=== PATIENT | male | born 1945 | race Caucasian/White ===

== ENCOUNTER 2017-11-30 08:13 | Emergency (ER) | payer MEDICARE, OTHER, SELFPAY ==
[2017-11-30 08:15] VITALS: BP 140/85; PULSE 93; RESP 14; TEMP 35.8; BMI 38.8
--- NOTE | 2017-11-30 08:32 | CT_ITS ---
STUDY: CT RIGHT ELBOW WITH CONTRAST REASON FOR EXAM: Right elbow swelling for one week, gout. TECHNIQUE: Transaxial CT imaging of the elbow was performed post contrast administration. The examination was performed with intravenous administration of 100 ml of Isovue 300 contrast material. Sagittal and coronal images were reconstructed. Individualized dose optimization techniques were used for this CT. COMPARISON: None. FINDINGS: There is an olecranon enthesophyte (axial images 53-56). Otherwise, unremarkable visualized humerus, radius and ulna without osseous erosions. Normal radiocapitellar and ulnotrochlear articulations. There is soft tissue swelling at the posterior and ulnar aspects of the elbow/forearm with an ill-defined fluid collection in the region of the olecranon bursa (axial images 42-54) suggestive of olecranon bursitis. The fluid collection measures approximately 1.4 x 2.5 cm (AP x transverse). Although septic bursitis cannot be excluded, there is no contrast enhancing wall to suggest abscess. CT/Extremity Upper WITH Contrast IMPRESSION: Ill-defined fluid collection in the region of the olecranon bursa suggestive of bursitis. Soft tissue swelling. Olecranon enthesophyte. No demonstrated osseous erosions or bone destruction. Electronically Signed: Wallace Landa MD at 10:11 EDT Tel , Service support ,
[2017-11-30] MEDS: Morphine 4 MG/ML Syringe IV (08:56)
[2017-11-30] MEDS: Ondansetron 4 MG/2 ML Vial IV (08:56)
[2017-11-30 08:58] LABS: Absolute Lymphocyte Count 1.56 X10^3/ul (0.83-4.51); Absolute Neutrophil Count 6.3 X10^3/uL (2.0-7.7); Basophil# 0.01 X10^3/uL; Basophil% 0.1 % (0-1); Eosinophils% 1.1 % (0-5); Hematocrit 43.7 % (40-54); Hemoglobin 14.4 g/dl (13.0-16.5); Lymphocyte # 1.56 X10^3/ul (4.0); Lymphocyte % 17.2 % (19-41); Mean Corpuscular Hgb 29.6 pg (27.0-32.0); Mean Corpuscular Volume 89.7 fL (80-94); Mean Platelet Vol. 9.2 fl (6.2-12.0); Monocyte# 1.08 X10^3/uL; Monocyte% 11.9 % (0-10); Neutrophil # 6.33 X10^3/uL (2.7-7.7); Neutrophil % 69.7 % (47-70); Platelet Count 263 K/mm3 (150-450); RBC Distribution Width CV 13.6 % (11.6-14.6); RBC Distribution Width SD 44.6 fl (35.1-43.9); Red Blood Count 4.87 M/mm3 (4.6-6.2); White Blood Count 9.1 K/mm3 (4.4-11.0)
--- NOTE | 2017-11-30 08:58 | ED.VISSUMM ---
- ER Visit Summary Date of Service: 11/30/17 Chief Complaint: Right elbow pain History of Present Illness: The patient is a 71 M with right elbow pain. This started about a week ago. The pain was near his medial epicondyle. He denies any trauma or skin breaks. The pain spread to his right elbow area, and he had some associated redness and swelling. He has pain with movement and touch. Nothing seems to make it better. He thought this might be gout. He had gout before in his right wrist, and it initially felt like gout. He has never had gout in his elbow. He denies any fever or systemic symptoms. Denies any change in his medications. Physical Examination: Afebrile and vital signs unremarkable. Nontoxic and in no acute distress. Alert and oriented. Inspection of his right arm shows erythema over his olecranon process and then slightly distally in an area about the size of his palm. There is some induration on palpation, but no fluctuance. There is some diffuse distal edema as well. Otherwise his skin appears unremarkable. No skin breaks. He is neurovascularly intact distally. There are no deformities. I can range his elbow with only minimal discomfort. Test Results: Imaging and labs are pending. Emergency Department Course and Treatment: This is not a classic presentation for gout. I can move his elbow without too much difficulty, and so I think a septic or crystal arthropathy is less likely. There is no focal swelling which would be more consistent with a bursitis. There is no definite abscess. This may simply be cellulitis. There is nothing to suggest DVT or fracture. I spoke with the patient about trying antibiotics, pain meds, and steroids. He could then follow-up with his doctor. He says he has trouble following up and would like to be more aggressive. We will check some blood work and imaging. CT showed soft tissue swelling and an ill-defined fluid collection, possibly bursitis. Will treat with Bactrim and Keflex. Referred to Dr. Oliverio Dill for follow-up. Patient was advised to return for spreading infection, worsening pain, or any other concerning symptoms. Treatment Plan: As above Disposition: Discharged Impression: 1. Right elbow septic bursitis This note was generated with [employer] software. It may contain incorrect words, spelling, and punctuation that were not noted in review of the chart prior to signing ED Disposition - Plan for ED Patient: Chief Complaint: Upper Extremity Injury [facility] [Primary Care Provider] -
[2017-11-30 09:00] LABS: Anion Gap 5 (5-15); BUN 13 mg/dL (7-18); BUN/Creat Ratio 12.3 RATIO (10-20); Chloride 104 mmol/L (98-107); Creatinine, Serum 1.06 mg/dL (0.70-1.30); EST Glomerular Filtration Rate 73 mL/min (>60); Est Glom Filt Rate - Afr Amer 88 mL/min (>60); Estimated Creatinine Clearance 68.08 ml/min; Glucose 107 mg/dL (74-106); Potassium 4.4 mmol/L (3.5-5.1); Sodium Level 139 mmol/L (136-145)
[2017-11-30 09:03] LABS: POSITIVE COUNT NO; POSITIVE DIFFERENTIAL NO; POSITIVE MORPHOLOGY NO
--- NOTE | 2017-11-30 10:51 | ED.DEP ---
ED Disposition - Plan for ED Patient: Chief Complaint: Upper Extremity Injury Instructions: ED Bursitis Elbow Olecranon Prescriptions: Oxycodone HCl/Acetaminophen [Percocet 5/325] 1 tab PO Q6H PRN PRN 3 Days #12 tab PRN Reason: Pain Cephalexin [Keflex] 500 mg PO Q6 #28 cap Smz/Tmp Ds [Bactrim Ds] 1 tab PO BID #14 tab Referrals: Oliverio Dill MD [STAFF PHYSICIAN] -
[2017-11-30 11:11] VITALS: BP 132/70; PULSE 80; PULSE 85; RESP 14; O2SAT 98; O2SAT 99
== END 2017-11-30 11:25 | disposition home or self-care (01) ==
PROVIDERS: Emergency Provider Emergency Medicine
DX: M70.21 Olecranon bursitis, right elbow (principal); Y93.9 Activity, unspecified; M19.90 Unspecified osteoarthritis, unspecified site; Z79.899 Other long term (current) drug therapy
CPT/HCPCS: 73201; 80048; 85025; 96374; 96375; 99283; J7040; Q9967; A4216; J2405

== ENCOUNTER 2017-12-04 10:22 | Inpatient (IN) | payer MEDICARE, OTHER, SELFPAY ==
[2017-12-04] VITALS (7 sets, daily range): BP systolic 129–164; BP diastolic 68–86; PULSE 70–89; RESP 18–20; TEMP 36.6–37.1; O2SAT 97–98; BMI 37.6; BMI 37.7
--- NOTE | 2017-12-04 10:38 | RAD_ITS ---
STUDY: X-RAY - RIGHT ELBOW REASON FOR EXAM: Male, 71 years old. Cellulitis redness pain TECHNIQUE: 3 view(s) of the elbow. COMPARISON: November 30, 2017 CT scan elbow FINDINGS: Normal visualized humerus, radius and ulna. There is degenerative arthrosis of the radiocapitellar and ulnotrochlear articulations. The there is diffuse soft tissue edema about the elbow. There is calcification adjacent to the lateral aspect of the elbow which may represent ligamentous calcification. There is a large area of focal edema in the posterior aspect of the elbow which given its location may represent possible bursitis. RAD/Elbow min 3 Views IMPRESSION: Soft tissue swelling and edema consider bursitis allowing for differences in technique may be worse than prior study. Degenerative changes left elbow. Electronically Signed: Adele Chandra MD at 11:46 EDT Tel , Service support ,
[2017-12-04 10:54] LABS: Absolute Lymphocyte Count 1.05 X10^3/ul (0.83-4.51); Absolute Neutrophil Count 6.5 X10^3/uL (2.0-7.7); Basophil# 0.02 X10^3/uL; Basophil% 0.2 % (0-1); Eosinophil# 0.09 X10^3/uL; Eosinophils% 1.1 % (0-5); Hematocrit 38.6 % (40-54); Hemoglobin 12.8 g/dl (13.0-16.5); Lymphocyte # 1.05 X10^3/ul (4.0); Lymphocyte % 12.3 % (19-41); Mean Corp Hgb Conc 33.2 g/gl (32-36); Mean Corpuscular Hgb 29.6 pg (27.0-32.0); Mean Corpuscular Volume 89.4 fL (80-94); Mean Platelet Vol. 8.6 fl (6.2-12.0); Monocyte# 0.91 X10^3/uL; Monocyte% 10.6 % (0-10); Neutrophil # 6.48 X10^3/uL (2.7-7.7); Neutrophil % 75.6 % (47-70); POSITIVE COUNT NO; POSITIVE DIFFERENTIAL NO; POSITIVE MORPHOLOGY NO; Platelet Count 286 K/mm3 (150-450); RBC Distribution Width CV 13.9 % (11.6-14.6); RBC Distribution Width SD 45.1 fl (35.1-43.9); Red Blood Count 4.32 M/mm3 (4.6-6.2); White Blood Count 8.6 K/mm3 (4.4-11.0)
[2017-12-04] MEDS: 0.9% Normal Saline 1,000 ML 999 ML IV (11:02)
[2017-12-04] MEDS: Morphine 4 MG/ML Syringe IV (11:02)
[2017-12-04] MEDS: Ondansetron 4 MG/2 ML Vial IV (11:02)
[2017-12-04 11:05] LABS: Anion Gap 9 (5-15); BUN 13 mg/dL (7-18); BUN/Creat Ratio 9.4 RATIO (10-20); Calcium,Total 8.7 mg/dL (8.5-10.1); Chloride 101 mmol/L (98-107); Creatinine, Serum 1.38 mg/dL (0.70-1.30); EST Glomerular Filtration Rate 54 mL/min (>60); Est Glom Filt Rate - Afr Amer 65 mL/min (>60); Estimated Creatinine Clearance 52.29 ml/min; Glucose 116 mg/dL (74-106); Potassium 3.7 mmol/L (3.5-5.1); Sodium Level 136 mmol/L (136-145)
--- NOTE | 2017-12-04 12:57 | ED.VISSUMM ---
- ER Visit Summary Date of Service: 12/04/17 Chief Complaint: Right elbow pain History of Present Illness: The patient is a 71 M who presents with right elbow pain. It is been present for 2 weeks. He was recently seen in the emergency department. At that time he had laboratory studies and a CT of the upper extremity which showed an ill-defined fluid collection suggestive of olecranon bursitis. He was discharged on oral antibiotics pain medications and steroids. He states it is continue to worsen since that time over the last couple of days. He does not have systemic symptoms such as fevers nausea vomiting chest pain shortness of breath. No history of prior similar symptoms. Physical Examination: Afebrile hypertensive vitals otherwise unremarkable Moist mucous membranes Heart regular rate and rhythm Lungs clear Abdomen soft Patient has a large area of erythema soft tissue swelling cellulitis which is hot to the touch over the posterior right arm there is fluctuance beginning at the olecranon measuring about 10 x 5 cm consistent with septic olecranon bursitis he has good short arc range of motion of the elbow without pain he is neurovascularly intact distally with palpable pulses and brisk capillary refill normal sensation light touch Test Results: CBC BMP notable for hemoglobin 12.8, creatinine 1.38. Elbow x-ray shows soft tissue swelling and edema suggestive of bursitis which when allowing for technique does appear worse. Emergency Department Course and Treatment: I do believe the patient has septic olecranon bursitis which is failing outpatient treatment it appears to have a significant area of cellulitis and I do believe intervention. He was treated with IV Zosyn. He was given IV morphine and Zofran for symptom control. He was discussed with Dr. Borrero who will see the patient. Patient admitted under the hospitalist service. Treatment Plan: [] Disposition: Admit Impression: Septic olecranon bursitis This note was generated with [employer] dictation software. It may contain incorrect words, spelling, and punctuation that were not noted in review of the chart prior to signing ED Disposition - Plan for ED Patient: Chief Complaint: Cellulitis [facility]errals: [facility] [Primary Care Provider] -
--- NOTE | 2017-12-04 13:12 | NURSING ---
DR JOSE IN ER
--- NOTE | 2017-12-04 13:22 | PCM.HP.STD ---
Problem List (1) Cellulitis of right elbow Status: Acute (2) Arthritis Status: Chronic (3) Hyperlipidemia Status: Chronic History of Present Illness Date of Admission: 12/04/17 Chief Complaint: Worsening right elbow redness, swelling and pain. The patient is a 71 year old M with past medical history as mentioned above presented to the emergency room because of worsening redness, swelling and pain of the right elbow. The patient's illness started around 9 days ago with right elbow pain, mild pain, described as dull ache, 3-4 out of 10 in severity, no associated symptoms and without aggravating or relieving factors. 6 days later from the onset of the right elbow pain, patient came to the emergency department for evaluation. He was found to have right elbow bursitis and possible cellulitis and he was discharged home on Keflex and Bactrim. Today, patient presented back to the ED because of worsening right elbow swelling, redness and discomfort. He complained of right elbow pain, dull aching pain with tightness, mild, 3-4 out of 10 in severity, associated with increasing redness and swelling of the right elbow extending down to the right forearm, minimally aggravated by movement of the right elbow and without relieving factors. He denied fever or chills. He denied trauma or skin wounds. In the emergency department, he was afebrile, heart rate stable, blood pressure slightly elevated, pulse ox was 98% on room air. Routine blood work was remarkable for creatinine of 1.38, otherwise normal. X-ray of the right elbow revealed soft tissue swelling and edema. On November 30, 2017, patient had CT scan of the right elbow that revealed ill-defined fluid collection in the region of the olecranon bursa and soft tissue swelling. He is being admitted for acute probably bacterial right elbow cellulitis/bursitis and probable abscess. Past Medical History Past Medical History (Chronic Problems): Chronic Problems Arthritis (Chronic) Hyperlipidemia (Chronic) Allergies bee venom protein (honey bee) Allergy (Verified 12/04/17 10:25) Anaphylaxis Home Medications: Ambulatory Orders Medication Instructions Recorded Epinephrine [Epi Pen] 0.3 mg IM X1 #2 syringe 11/21/16 Simvastatin [Zocor] 5 mg PO DAILY 11/21/16 traMADol [Ultram (G)] 50 mg PO Q6H PRN PRN 11/21/16 Cephalexin [Keflex] 500 mg PO Q6 #28 cap 11/30/17 Naproxen Sodium [Aleve] 220 mg PO BID PRN 11/30/17 Oxycodone HCl/Acetaminophen 1 tab PO Q6H PRN PRN 3 Days #12 tab 11/30/17 [Percocet 5/325] Smz/Tmp Ds [Bactrim Ds] 1 tab PO BID #14 tab 11/30/17 Surgical History: no surgical history Psychiatric History: No pertinent psych hx Lives: With Family Smoking Status: Never smoker Alcohol: Occasional Drugs: None - *Family History Maternal History Items: No pertinent history Paternal History Items: No pertinent history Review of Systems Constitutional: Denies: Anorexia, Chills, Fever, Weakness Eyes: Denies: Blurred vision, Double vision, Drainage, Redness HEENT: Denies: Difficulty Hearing, Ear Pain, Eye Pain, Nasal Congestion, Sore Throat Cardiovascular: Denies: Chest Pain, Chest Pressure, Edema, Light Headedness, Syncope Respiratory: Denies: Cough, Pleuritic Pain, Shortness of Breath, Sputum production, Wheezing Gastrointestinal: Denies: Abdominal Pain, Constipation, Diarrhea, Nausea, Vomiting Genitourinary: Denies: Dysuria, Frequency, Hematuria Musculoskeletal: Reports: Joint Pain. Denies: Arm Pain, Back Pain, Shoulder Pain Skin: Denies: Dryness, Rash Neurological: Denies: Balance problems, Double vision, Change in Speech, Slurred speech, Confusion, Headaches, Incoordination, Numbness Psychiatric: Denies: Anxiety, Depression Endocrine: Denies: Change in Body Habitus, Polydipsia VTE Information - Inpt Only VTE Present on Admission: No VTE Mechan Device Prophylaxis: None VTE Pharm Prophylaxis ordered?: Yes Patient Problems: Active and Suspected Problems Cellulitis of right elbow (Acute) - Physical Exam General: Alert, Oriented x3, Cooperative, No apparent distress HEENT: Atraumatic, PERRLA, EOMI, Normocephalic Oral: Moist Mucosa, No Gingival or Mucosal Lesions/ Ulcerations Neck: Supple, No JVD, Negative Carotid Bruits, Trachea Midline, Thyroid Normal Size and Texture Lungs: Clear to auscultation, Normal air movement, No rhonchi, No wheeze, No rales Cardiovascular: Regular rate, Regular Rhythm, Normal S1, Normal S2, No murmurs Abdomen: Bowel Sounds Present, Soft, Non Tender, Non-Distended, No Hepato-splenomegaly Extremities: No clubbing, No cyanosis, No edema Skin: No rashes, No breakdown, - - Right elbow: Swelling and erythema of the right elbow extending down to the upper one third of the right forearm dorsally. No drainage or pus. Lymphatic: No Cervical, Supraclavicular, or Inguinal Adenopathy Neurological: Cranial nerves II-XII grossly intact, Motor Exam 5/5 strength throughout Psych/Mental Status: Normal Affect, Appropriate, Alert and oriented to time, place, person, mood and affect Vital Signs Temp Pulse Resp BP Pulse Ox 98.8 F 89 18 164/83 H 98 12/04/17 10:23 12/04/17 10:23 12/04/17 10:23 12/04/17 10:23 12/04/17 10:23 Oxygen Delivery Method Room Air Weight: 270 lb Body Mass Index (BMI) 37.6 Laboratory Tests Past 24 Hrs 12/04/17 12/04/17 10:40 10:40 WBC 8.6 RBC 4.32 L Hgb 12.8 L Hct 38.6 L MCV 89.4 MCH 29.6 MCHC 33.2 RDW 13.9 RDW Differential 45.1 H Plt Count 286 MPV 8.6 Immature Gran % (Auto) 0.200 Neut % (Auto) 75.6 H Lymph % (Auto) 12.3 L [place] % (Auto) 10.6 H Eos % (Auto) 1.1 Baso % (Auto) 0.2 Absolute Neuts (auto) 6.5 Absolute Lymphs (auto) 1.05 Total Counted Not Reportable Sodium 136 Potassium 3.7 Chloride 101 Carbon Dioxide 26.0 Anion Gap 9 BUN 13 Creatinine 1.38 H Estim Creat Clear Calc 52.29 Est GFR (MDRD) Af Amer 65 Est GFR (MDRD) Non-Af 54 L BUN/Creatinine Ratio 9.4 L Glucose 116 H Calcium 8.7 Clinical Impression(s) from Imaging Studies Elbow X-Ray 12/04/17 10:38 IMPRESSION: Soft tissue swelling and edema consider bursitis allowing for differences in technique may be worse than prior study. Degenerative changes left elbow. Electronically Signed: Adele Chandra MD at 11:46 EDT Tel , Service support , Assessment/Plan All Active Problems Cellulitis of right elbow (Acute) This is a 71 years old male patient presented to the emergency room because of worsening right elbow swelling, erythema and pain in context of recent visit to ED, diagnosed with right elbow bursitis and discharged on Keflex and Bactrim and he presented back today because of worsening symptoms and he is being admitted for acute right elbow cellulitis/bursitis and probable abscess. #1 acute right elbow cellulitis/bursitis/probable abscess: With failure of outpatient therapy. Patient was on Keflex and Bactrim for 4 days without improvement. His vital signs are stable, no evidence of sepsis or severe sepsis. X-ray of the right elbow from today reviewed, revealed soft tissue swelling and edema. CT scan of the right elbow done on November 30, 2017 and revealed ill-defined fluid collection suggestive of bursitis. Plan: Admit to MedSurg, telemetry, MRSA screen, wound culture, start IV cefazolin, IV Toradol, OxyIR as needed, IV fluids, IV antiemetics, orthopedic surgery consult. #2 dehydration: Likely secondary to dehydration. Admission creatinine is 1.38, it was 1.06 4 days ago. Plan for IV fluids, input output chart, repeat BMP tomorrow morning. #3 hyperlipidemia: Continue statins. #4 arthritis: Tylenol as needed, OxyIR as needed, IV Toradol. #5 DVT prophylaxis: Subcu Lovenox. This note was generated with [employer] dictation software. It may contain incorrect words, spelling, and punctuation that were not noted in checking the note before signing. Code Visit Inpatient E&M: 74543 Init Hosp L3
--- NOTE | 2017-12-04 13:24 | NURSING ---
MED SURG ACUTE RT ELBOW CELLULITIS, BURSITIS, WITH FAILURE OF OP MARA WOODSON
[2017-12-04 14:40] LABS: Erythrocyte Sedimentation Rate 59 mm/hr (0-20)
[2017-12-04] MEDS: 0.9% Normal Saline 1,000 ML 100 ML IV (15:11)
[2017-12-04] MEDS: oxyCODONE 5 MG Tablet PO (15:11)
[2017-12-04] MEDS: Ketorolac 15 MG/ML Vial IV ×2 (15:48→21:12)
[2017-12-04] MEDS: Cefazolin 1 GM/50 ML BAG IV ×2 (15:48→21:11)
[2017-12-04 18:17] LABS: M R Staph aureus DNA By PCR Negative (Negative); Probe Check PASS; Specimen Processing Control PASS; Staph aureus DNA By PCR NEGATIVE (Negative)
[2017-12-04] MEDS: Atorvastatin Calcium 10 MG Tablet 5 MG PO (21:11)
[2017-12-05] VITALS (11 sets, daily range): BP systolic 109–146; BP diastolic 59–86; PULSE 58–65; RESP 16–18; TEMP 36.7–37.1; O2SAT 94–100
[2017-12-05] MEDS: oxyCODONE 5 MG Tablet PO ×4 (01:05→18:35)
[2017-12-05] MEDS: 0.9% Normal Saline 1,000 ML 100 ML IV ×2 (01:05→11:25)
[2017-12-05] MEDS: Cefazolin 1 GM/50 ML BAG IV (05:20)
[2017-12-05] MEDS: Ketorolac 15 MG/ML Vial IV ×3 (05:21→21:15)
[2017-12-05 07:31] LABS: Absolute Lymphocyte Count 1.25 X10^3/ul (0.83-4.51); Absolute Neutrophil Count 5.8 X10^3/uL (2.0-7.7); Basophil# 0.01 X10^3/uL; Basophil% 0.1 % (0-1); Eosinophil# 0.19 X10^3/uL; Eosinophils% 2.3 % (0-5); Hematocrit 33.5 % (40-54); Hemoglobin 11.1 g/dl (13.0-16.5); Lymphocyte # 1.25 X10^3/ul (4.0); Lymphocyte % 15.1 % (19-41); Mean Corp Hgb Conc 33.1 g/gl (32-36); Mean Corpuscular Hgb 29.8 pg (27.0-32.0); Mean Corpuscular Volume 90.1 fL (80-94); Mean Platelet Vol. 8.9 fl (6.2-12.0); Monocyte% 12.1 % (0-10); Neutrophil # 5.81 X10^3/uL (2.7-7.7); Neutrophil % 70.2 % (47-70); Platelet Count 276 K/mm3 (150-450); RBC Distribution Width CV 14.1 % (11.6-14.6); RBC Distribution Width SD 45.2 fl (35.1-43.9); Red Blood Count 3.72 M/mm3 (4.6-6.2); White Blood Count 8.3 K/mm3 (4.4-11.0)
[2017-12-05 07:34] LABS: POSITIVE COUNT NO; POSITIVE DIFFERENTIAL NO; POSITIVE MORPHOLOGY NO
[2017-12-05 07:47] LABS: Anion Gap 6 (5-15); BUN 12 mg/dL (7-18); BUN/Creat Ratio 11.3 RATIO (10-20); Calcium,Total 7.9 mg/dL (8.5-10.1); Chloride 107 mmol/L (98-107); Creatinine, Serum 1.06 mg/dL (0.70-1.30); EST Glomerular Filtration Rate 73 mL/min (>60); Est Glom Filt Rate - Afr Amer 88 mL/min (>60); Estimated Creatinine Clearance 68.08 ml/min; Glucose 104 mg/dL (74-106); Potassium 4.1 mmol/L (3.5-5.1); Sodium Level 138 mmol/L (136-145)
--- NOTE | 2017-12-05 07:48 | PCM.CONS.GEN ---
Reason for Consult Date of Consultation: 12/05/17 Reason for Consultation: Right elbow infection History of Present Illness: The patient is a 71 year old M that presents to the ER last night with persistent swelling and infection overlying the dorsal aspect of his right elbow. He was given antibiotics in the ER and sent home which did not seem to make any improvements. Because of feeling outpatient oral antibiotics he was admitted last night for IV antibiotics. Orthopedics was subsequently consulted. Patient does not feel that this has improved at all over the past 9 days Past Medical History Past Medical History (Chronic Problems): Chronic Problems Arthritis (Chronic) Hyperlipidemia (Chronic) Allergies bee venom protein (honey bee) Allergy (Verified 12/04/17 10:25) Anaphylaxis Home Medications: Ambulatory Orders Medication Instructions Recorded Epinephrine [Epi Pen] 0.3 mg IM X1 #2 syringe 11/21/16 Simvastatin [Zocor] 5 mg PO QHS 11/21/16 traMADol [Ultram (G)] 50 mg PO Q6H PRN PRN 11/21/16 Cephalexin [Keflex] 500 mg PO Q6 #28 cap 11/30/17 Naproxen Sodium [Aleve] 220 mg PO BID PRN 11/30/17 Smz/Tmp Ds [Bactrim Ds] 1 tab PO BID #14 tab 11/30/17 Surgical History: no surgical history Psychiatric History: No pertinent psych hx Lives: With Family Smoking Status: Former smoker Alcohol: Occasional Drugs: None - *Family History Maternal History Items: No pertinent history Paternal History Items: No pertinent history Review of Systems Constitutional: Denies: Chills, Fever, Weight Change HEENT: Denies: Head Aches, Sinus Congestion, Sinus Drainage Cardiovascular: Denies: Chest Pain, Palpitations Respiratory: Denies: Cough, Shortness of breath at rest, Sputum production Gastrointestinal: Denies: Abdominal Pain, Nausea, Vomiting Genitourinary: Denies: Dysuria Musculoskeletal: Reports: - - Per history of present illness Skin: Reports: - - Redness overlying the dorsal aspect of elbow Neurological: Denies: Numbness, Tingling, Focal weakness Patient Problems: Active and Suspected Problems Cellulitis of right elbow (Acute) - Physical Exam General: Alert, Oriented x3, Cooperative HEENT: Atraumatic, PERRLA, EOMI, Normocephalic Neck: Supple Lungs: Normal air movement Cardiovascular: Regular rate Abdomen: Soft Musculoskeletal: - - Significant swelling is noted over the dorsum aspect of his right elbow. Swelling does appear to propagate in the dorsal aspect of the forearm proximally. There are couple areas that are concerning for infection overlying the olecranon. The olecranon appears to be the nidus for septic bursitis. The concerning area is approximately 20 cm in length 10 cm in width. He is able to move his elbow. He is neurologically intact. There is no pain in the shoulder wrist or hand Vital Signs Temp Pulse Resp BP Pulse Ox 98.7 F 61 18 110/63 96 12/05/17 03:51 12/05/17 06:00 12/05/17 03:51 12/05/17 03:51 12/05/17 03:51 Oxygen Delivery Method Room Air Weight: 270 lb Body Mass Index (BMI) 37.6 Intake and Output for Last 24 Hours 12/03/17 12/04/17 12/05/17 23:59 23:59 23:59 Intake Total 757 / 757 1499 / 1499 Balance 757 / 757 1499 / 1499 Laboratory Tests Past 24 Hrs 12/04/17 12/05/17 12/05/17 15:20 07:20 07:20 WBC 8.3 RBC 3.72 L Hgb 11.1 L Hct 33.5 L MCV 90.1 MCH 29.8 MCHC 33.1 RDW 14.1 RDW Differential 45.2 H Plt Count 276 MPV 8.9 Immature Gran % (Auto) 0.200 Neut % (Auto) 70.2 H Lymph % (Auto) 15.1 L [place] % (Auto) 12.1 H Eos % (Auto) 2.3 Baso % (Auto) 0.1 Absolute Neuts (auto) 5.8 Absolute Lymphs (auto) 1.25 Total Counted Not Reportable Sodium 138 Potassium 4.1 Chloride 107 Carbon Dioxide 25.0 Anion Gap 6 BUN 12 Creatinine 1.06 Estim Creat Clear Calc 68.08 Est GFR (MDRD) Af Amer 88 Est GFR (MDRD) Non-Af 73 BUN/Creatinine Ratio 11.3 Glucose 104 Calcium 7.9 L S.aureus Protein A PCR NEGATIVE MRSA (PCR) Negative Assessment/Plan All Active Problems Cellulitis of right elbow (Acute) We will attempt at bedside irrigation debridement to see if I can decompress his bursa and while the IV antibiotics become more effective. He appears to have septic olecranon bursitis. If this bedside I&D is unsuccessful in improving his symptoms will consider doing a formal irrigation debridement either tomorrow or Tuesday depending on his response.
--- NOTE | 2017-12-05 08:31 | PCM.PROGNOTE ---
Patient Problems: Active and Suspected Problems Cellulitis of right elbow (Acute) Subjective: Chief complaint: Follow-up after admission for right elbow cellulitis/septic olecranon bursitis. Patient seen and examined. No acute events overnight. This morning, he underwent bedside incision and drainage by orthopedic surgery. He denied fever overnight. He mentioned that the right elbow pain is around 2-4 out of 10 severity. Denied any other symptoms. His vital signs are stable. - Physical Exam General: Alert, Oriented x3, Cooperative, No apparent distress HEENT: Atraumatic, PERRLA, EOMI, Normocephalic Oral: Moist Mucosa, No Gingival or Mucosal Lesions/ Ulcerations Neck: Supple, No JVD, Negative Carotid Bruits, Trachea Midline, Thyroid Normal Size and Texture Lungs: Clear to auscultation, No rhonchi, No wheeze, No rales, Diminished Cardiovascular: Regular rate, Regular Rhythm, Normal S1, Normal S2, No murmurs, PMI Normal Abdomen: Bowel Sounds Present, Soft, Non Tender, Non-Distended, No Hepato-splenomegaly Extremities: No clubbing, No cyanosis, No edema Skin: No rashes, Ulcer/ Wound Lymphatic: No Cervical, Supraclavicular, or Inguinal Adenopathy Neurological: Cranial nerves II-XII grossly intact, Motor Exam 5/5 strength throughout Psych/Mental Status: Normal Affect, Appropriate, Alert and oriented to time, place, person, mood and affect Vital Signs Temp Pulse Resp BP Pulse Ox 98.7 F 61 18 110/63 94 12/05/17 03:51 12/05/17 06:00 12/05/17 03:51 12/05/17 03:51 12/05/17 07:40 Oxygen Delivery Method Room Air Weight: 270 lb Body Mass Index (BMI) 37.6 Intake and Output for Last 24 Hours 12/03/17 12/04/17 12/05/17 23:59 23:59 23:59 Intake Total 757 / 757 1499 / 1499 Balance 757 / 757 1499 / 1499 Laboratory Tests Past 24 Hrs 12/04/17 12/05/17 12/05/17 15:20 07:20 07:20 WBC 8.3 RBC 3.72 L Hgb 11.1 L Hct 33.5 L MCV 90.1 MCH 29.8 MCHC 33.1 RDW 14.1 RDW Differential 45.2 H Plt Count 276 MPV 8.9 Immature Gran % (Auto) 0.200 Neut % (Auto) 70.2 H Lymph % (Auto) 15.1 L [place] % (Auto) 12.1 H Eos % (Auto) 2.3 Baso % (Auto) 0.1 Absolute Neuts (auto) 5.8 Absolute Lymphs (auto) 1.25 Total Counted Not Reportable Sodium 138 Potassium 4.1 Chloride 107 Carbon Dioxide 25.0 Anion Gap 6 BUN 12 Creatinine 1.06 Estim Creat Clear Calc 68.08 Est GFR (MDRD) Af Amer 88 Est GFR (MDRD) Non-Af 73 BUN/Creatinine Ratio 11.3 Glucose 104 Calcium 7.9 L S.aureus Protein A PCR NEGATIVE MRSA (PCR) Negative Medical Necessity - Tobacco Use Smoking Status: Former smoker Assessment/Plan All Active Problems Cellulitis of right elbow (Acute) This is a 71 years old male patient presented to the emergency room because of worsening right elbow swelling, erythema and pain in context of recent visit to ED, diagnosed with right elbow bursitis and discharged on Keflex and Bactrim and he presented back today because of worsening symptoms and he is being admitted for acute right elbow cellulitis/bursitis and probable abscess. #1 acute right elbow cellulitis/septic olecranon bursitis: With failure of outpatient therapy. Status post bedside incision and drainage this morning. He is on IV cefazolin. His vital signs are stable, afebrile, no leukocytosis. Repeat routine blood work from today reviewed, unremarkable. ESR and C-reactive protein are elevated. Screen for MRSA and staph aureus were negative. Wound cultures are pending. Orthopedic surgery on the case. Plan to continue same treatment. #2 dehydration: Likely secondary to dehydration. Admission creatinine is 1.38, it was 1.06 4 days ago. He is on IV fluids, creatinine came down to 1.06 this morning, improved. #3 hyperlipidemia: Continue statins. #4 arthritis: Tylenol as needed, OxyIR as needed, IV Toradol. #5 DVT prophylaxis: Subcu Lovenox. This note was generated with [employer] software. It may contain incorrect words, spelling, and punctuation that were not noted in checking the note before signing. Code Visit Inpatient E&M: 51913 Subs Hosp L2
--- NOTE | 2017-12-05 08:32 | PCM.OP.BLANK ---
Operative Report Date of Procedure: 12/05/17 Preprocedure diagnosis: Septic olecranon bursitis right Postprocedure diagnosis: Same Procedure: Irrigation debridement of right olecranon bursa Surgeon: Santiago Borrero DO Procedure description: Patient skin was anesthetized with 1% lidocaine. An 11 blade was used to make a stab incision on the lateral aspect of the elbow. Hemostat was then utilized to break up any septae in the bursa and immediate evacuation of purulent material was noted. Cultures were obtained. The wound was explored with a hemostat to assess for any tracking. The wound was then irrigated with 30 cc of normal saline. Logan drain was then placed in a padded bulky sterile dressing was applied
[2017-12-05] MEDS: Enoxaparin 30 MG/0.3 ML Syringe SC (09:31)
[2017-12-05] MEDS: Cefazolin 2 GM in 0.9% Normal Saline 100 ML IV ×2 (14:22→21:15)
--- NOTE | 2017-12-05 14:40 | CASEMGMT ---
RN RAYA Face to Face with patient for initial transition planning/care coordination assessment. RN CM introduced self and role at [facility]. Patient lying in bed, alert and oriented. Patient willing to participate in assessment and is able to answer all questions appropriately. Care providers, pharmacy, and demographics verified. See link attached. Patient wishes to discharge home, denies need for home health at this time. Patient states he has no further needs or concerns at this time. CM to follow for discharge planning needs that may arise. Disposition Plan: Patient to discharge home with family support and follow-up plans in place.
[2017-12-05] MEDS: Atorvastatin Calcium 10 MG Tablet 5 MG PO (21:14)
[2017-12-06] VITALS (11 sets, daily range): BP systolic 123–145; BP diastolic 73–79; PULSE 53–60; RESP 14–18; TEMP 36.6–37.1; O2SAT 96–99
[2017-12-06] MEDS: 0.9% Normal Saline 1,000 ML 100 ML IV ×3 (00:06→21:01)
[2017-12-06] MEDS: oxyCODONE 5 MG Tablet PO ×2 (02:53→17:06)
[2017-12-06] MEDS: Cefazolin 2 GM in 0.9% Normal Saline 100 ML IV ×3 (06:09→21:01)
[2017-12-06] MEDS: Ketorolac 15 MG/ML Vial IV ×3 (06:09→21:01)
--- NOTE | 2017-12-06 07:39 | PCM.PN.BLA ---
Progress Note Patient's pain is improving. He denies any chest pain or shortness of breath. He did state that they had to reinforce the dressing yesterday a substantial amount of drainage was noted Objective: Blood work was reviewed. Patient remains afebrile Logna drain still in place significant amount of drainage noted on the dressing. The swelling in the form has regressed there is no fluctuance at the elbow erythema remains Impression: Septic bursitis right olecranon status post I&D Plan: Continue IV antibiotics for an additional 24 hours. Hopefully we can discharge the patient tomorrow with p.o. antibiotics
--- NOTE | 2017-12-06 08:30 | PCM.PROGNOTE ---
Patient Problems: Active and Suspected Problems Cellulitis of right elbow (Acute) Subjective: Chief complaint: Follow-up after admission for right elbow cellulitis/septic olecranon bursitis. Patient seen and examined. No acute events overnight. Right elbow pain is under control. Denies fever chills. His vital signs are stable. - Physical Exam General: Alert, Oriented x3, Cooperative, No apparent distress HEENT: Atraumatic, PERRLA, EOMI, Normocephalic Oral: Moist Mucosa, No Gingival or Mucosal Lesions/ Ulcerations Neck: Supple, No JVD, Negative Carotid Bruits, Trachea Midline, Thyroid Normal Size and Texture Lungs: Clear to auscultation, Normal air movement, No rhonchi, No wheeze, No rales Cardiovascular: Regular rate, Regular Rhythm, Normal S1, Normal S2, No murmurs Abdomen: Bowel Sounds Present, Soft, Non Tender, Non-Distended, No Hepato-splenomegaly Extremities: No clubbing, No cyanosis, No edema Skin: No rashes, Ulcer/ Wound Lymphatic: No Cervical, Supraclavicular, or Inguinal Adenopathy Neurological: Cranial nerves II-XII grossly intact, Neuro grossly intact Psych/Mental Status: Normal Affect, Appropriate, Alert and oriented to time, place, person, mood and affect Vital Signs Temp Pulse Resp BP Pulse Ox 98.8 F 60 18 138/74 H 96 12/06/17 08:19 12/06/17 08:20 12/06/17 08:19 12/06/17 08:19 12/06/17 08:19 Oxygen Delivery Method Room Air Weight: 270 lb Body Mass Index (BMI) 37.6 Intake and Output for Last 24 Hours 12/04/17 12/05/17 12/06/17 23:59 23:59 23:59 Intake Total 757 / 757 3274 / 3274 1562 / 1562 Balance 757 / 757 3274 / 3274 1562 / 1562 Microbiology Past 72 Hours 12/05/17 08:45 Gram Stain - Preliminary Fluid - Synovial (joint) Body Fluid Culture - Preliminary Staphylococcus aureus 12/04/17 15:20 Gram Stain - Final Wound - Elbow Wound Culture - Preliminary No growth-Final to follow Medical Necessity - Tobacco Use Smoking Status: Former smoker Assessment/Plan All Active Problems Cellulitis of right elbow (Acute) This is a 71 years old male patient presented to the emergency room because of worsening right elbow swelling, erythema and pain in context of recent visit to ED, diagnosed with right elbow bursitis and discharged on Keflex and Bactrim and he presented back today because of worsening symptoms and he is being admitted for acute right elbow cellulitis/bursitis and probable abscess. #1 acute right olecranon septic bursitis/surrounding right elbow cellulitis: Status post bedside incision and drainage, postoperative day 1. Patient remains on IV cefazolin. His vital signs are stable, afebrile. Screen for MRSA and staph aureus were negative. Wound cultures revealed staph aureus, final is pending. Orthopedic surgery on the case. Plan to continue same treatment. #2 dehydration: Likely secondary to dehydration. Admission creatinine is 1.38, it was 1.06 4 days ago. He is on IV fluids, creatinine came down to 1.06, improved. #3 hyperlipidemia: Continue statins. #4 arthritis: Tylenol as needed, OxyIR as needed, IV Toradol. #5 DVT prophylaxis: Subcu Lovenox. This note was generated with [employer] dictation software. It may contain incorrect words, spelling, and punctuation that were not noted in checking the note before signing. Code Visit Inpatient E&M: 09628 Subs Hosp L2
[2017-12-06] MEDS: Enoxaparin 30 MG/0.3 ML Syringe SC (09:39)
[2017-12-06] MEDS: 0.9% NaCl Peripheral Flush Adult/Peds IV (13:20)
[2017-12-06] MEDS: Atorvastatin Calcium 10 MG Tablet 5 MG PO (21:01)
[2017-12-07 01:45] VITALS: BP 159/75; PULSE 55; RESP 16; TEMP 36.4; O2SAT 97
[2017-12-07 02:00] VITALS: PULSE 52
[2017-12-07] MEDS: Ketorolac 15 MG/ML Vial IV (05:56)
[2017-12-07] MEDS: Cefazolin 2 GM in 0.9% Normal Saline 100 ML IV (05:56)
[2017-12-07] MEDS: oxyCODONE 5 MG Tablet PO (06:02)
[2017-12-07 07:31] VITALS: BP 158/68; PULSE 53; RESP 16; TEMP 36.9; O2SAT 98
[2017-12-07 07:36] VITALS: PULSE 60
[2017-12-07 08:30] VITALS: PULSE 59
--- NOTE | 2017-12-07 08:34 | PCM.PN.HOSP ---
Patient Problems: Active and Suspected Problems MRSA infection (Acute) Olecranon bursitis of right elbow (Acute) Cellulitis of right elbow (Acute) Subjective: Patient with no acute events overnight per self and per nursing report. Patient states that right upper extremity feels improved since initial presentation, moving with greater ease, no market drainage. Orthopedic surgery with dressing down today and drain removal. Wound culture from OR with MRSA with antibiotic change this morning and review of case with ID. Patient denies fevers, chills, nausea, emesis, abdominal pain, chest pain or dyspnea. Objective: Physical Examination: General: awake, alert, oriented x 3 and cooperative, seated upright in bed in no apparent distress. Skin: normal color, turgor, no icterus, cyanosis, right upper extremity dressing in place, drain, no marked output, improved ROM, resolving erythema. HEENT: AT/NC, EOMI, PERRLA, mildly dry MM. Lungs: CTA bilaterally, moderate effort, mild decrease BL bases, no rales, ronchi or wheezing. Heart: Regular rate and rhythm; no gallop, rub audible. Abdomen: soft, obese, NTTP, ND, normal BS. Extremities: no cyanosis, clubbing, see skin. Neurological: patient awake, alert, oriented x 3; cognitive function intact; pupils equally reactive to light and accomodation; cranial nerves II-XII grossly normal, moving all 4 extremities although decreased RUE as expected given recent OR, no focal deficits, strength moderately globally decreased. Psychiatric: affect appears normal, no acute evidence of depressive or anxiety feelings. Vitals/I&O's: Vital Signs Temp Pulse Resp BP Pulse Ox 98.4 F 60 16 158/68 H 98 12/07/17 07:31 12/07/17 07:36 12/07/17 07:31 12/07/17 07:31 12/07/17 07:31 Oxygen Delivery Method Room Air Weight: 270 lb Body Mass Index (BMI) 37.6 Intake and Output for Last 24 Hours 12/05/17 12/06/17 12/07/17 23:59 23:59 23:59 Intake Total 3274 / 3274 3413 / 3413 1765 / 1765 Balance 3274 / 3274 3413 / 3413 1765 / 1765 Microbiology Past 72 Hours 12/05/17 08:45 Fluid - Synovial (joint) Gram Stain - Final 12/05/17 08:45 Fluid - Synovial (joint) Body Fluid Culture - Final Meth. resistant Staph. aureus 12/04/17 15:20 Wound - Elbow Gram Stain - Final 12/04/17 15:20 Wound - Elbow Wound Culture - Final No growth aerobically. Current Medications Acetaminophen (Tylenol) 650 mg PO Q6H PRN PRN PRN Reason: Mild Pain (scale 0-3)/T>100.7 Atorvastatin Calcium (Lipitor) 5 mg PO QHS [facility] Last Admin: 12/06/17 21:01 Dose: 5 mg Enoxaparin Sodium (Lovenox) 30 mg SC DAILY@1000 LULY Last Admin: 12/06/17 09:39 Dose: 30 mg Sodium Chloride () 1,000 mls @ 100 mls/hr IV .Q10H [facility] Last Admin: 12/06/17 21:01 Dose: 100 mls/hr Cefazolin Sodium 2 gm/ Sodium (Chloride) 110 mls @ 150 mls/hr IV Q8 [facility] Last Admin: 12/07/17 05:56 Dose: 150 mls/hr Ketorolac Tromethamine (Toradol) 15 mg IV Q8 [facility] Stop: 12/09/17 14:31 Last Admin: 12/07/17 05:56 Dose: 15 mg Magnesium Hydroxide (Milk Of Magnesia) 30 ml PO DAILY PRN PRN PRN Reason: Constipation Ondansetron HCl (Zofran) 4 mg IV Q8H PRN PRN PRN Reason: Nausea Oxycodone HCl (Oxyir) 5 mg PO Q4H PRN PRN PRN Reason: Moderate Pain (pain scale 4-5) Last Admin: 12/07/17 06:02 Dose: 5 mg Sodium Chloride () 5 - 30 ml IV UD PRN PRN Reason: SALINE FLUSH Last Admin: 12/06/17 13:20 Dose: 10 ml Medical Necessity - Tobacco Use Smoking Status: Former smoker Assessment/Plan All Active Problems MRSA infection (Acute) Olecranon bursitis of right elbow (Acute) Cellulitis of right elbow (Acute) The patient is a 71 y/o M w/ PMHx: OA, HLD, Obesity who presents to the [facility] on 12/04/17 with history of worsening R elbow redness, pain, edema x 1.5 wk, worsening progressively. (1) Acute MRSA Right Olecranon Septic Bursitis w/ surrounding R Elbow Cellulitis: Admission CBC w/ WBC 8.6 without marked L shift, ESR 59, ED plain film w/ soft tissue swelling and edema concerning for bursitis. Patient admitted to NH, maintained on IV ancef, OR 12/05/17 with Irrigation debridement of right olecranon bursa w/ drain in place per Dr. Borrero. Wound MRSA/MSSA screen negative. Patient remains on IV cefazolin-->given now resulted MRSA will transition based on sensitivities to IV clindamycin. His vital signs are stable, afebrile. Screen for MRSA and staph aureus were negative; however, OR Cultures w/ MRSA. Currently sensitivities w/ clindamycin, gentamicin, levofloxacin, linezolid, tigecycline, open, tetracycline, Bactrim, vancomycin sensitive. Orthopedic surgery noting additional 24 hours abx IV with oral transition and likely discharge with home health. Given MRSA positive, requestrf ID consultation and transitioned from ancef to IV clindamycin with follow-up ID evaluation with recommendation for transition given sensitivities to oral doxycycline 12 day course. Re-assessment per Orthopedic surgery with dressing takedown, drain removal and clearance for discharge to home. (2) Mild renal insufficiency, Dehydration: Likely secondary to acute presentation, mild dehydration, admission creatinine is 1.38, baseline 1, improved. (3) Hyperlipidemia: Continue home statin regimen. (4) Obesity: Weight loss and lifestyle changes encouraged. (5) OA: Encourage OOB, PRN tylenol, OxyIR as needed, IV Toradol. (6) DVT Prophylaxis: SCDs, lovenox.
[2017-12-07] MEDS: 0.9% Normal Saline 1,000 ML 100 ML IV (09:43)
[2017-12-07] MEDS: Enoxaparin 30 MG/0.3 ML Syringe SC (09:45)
[2017-12-07] MEDS: Doxycycline 100 MG CAPSULE PO (10:38)
--- NOTE | 2017-12-07 10:52 | PCM.DC ---
- Discharge Diagnoses Current Active Problems: Current Active and Chronic Problems Cellulitis of right elbow (Acute) Arthritis (Chronic) Hyperlipidemia (Chronic) Discharge Activity: May not drive while taking narcotic pain medications. Keep extremity elevated above heart level: Right Arm Additional Activity Instructions:: Keep dressing clean and dry (leave intact with planned change in office on Tuesday), no water submersion, any onset redness, increased swelling, fever or chills immediately call Orthopedic surgery. Please continue to ice region 20 minutes on-off at least 3x daily. Elevate extremity above your heart when seated and in bed. Call your doctor if your incision/area has: Continuous Slow Oozing, Sudden Increased Bleeding, Increased Pain/ Swelling, Increased Redness, Foul Smelling Discharge, Swelling at the incision site Call your doctor if you observe: Fever of 101 or Higher, Inability to urinate, Inability to have a bowel movement, Shortness of breath, Dizziness, Fainting spells, Chest pain, Uncontrolled pain Instructions: What Is Bursitis?, ED Bursitis Elbow Olecranon Additional Instructions: Keep dressing clean and dry (leave intact with planned change in office on Tuesday), no water submersion, any onset redness, increased swelling, fever or chills immediately call Orthopedic surgery. Please continue to ice region 20 minutes on-off at least 3x daily. Elevate extremity above your heart when seated and in bed. Allergies/Adverse Reactions: Allergies bee venom protein (honey bee) Allergy (Verified 12/04/17 10:25) Anaphylaxis Medications to take at Discharge Epinephrine [Epi Pen] 0.3 mg IM X1 #2 syringe 11/21/16 Simvastatin [Zocor] 5 mg PO QHS 11/21/16 Naproxen Sodium [Aleve] 220 mg PO BID PRN 11/30/17 Docusate Sodium [Colace] 100 mg PO BID PRN PRN #60 cap 12/07/17 Doxycycline 100 mg PO BID 12 Days #24 cap 12/07/17 Oxycodone [Oxyir] 5 - 10 mg PO Q4H PRN PRN 5 Days #60 tablet 12/07/17 The following prescriptions were given: Oxycodone [Oxyir] 5 - 10 mg PO Q4H PRN PRN 5 Days #60 tablet PRN Reason: Moderate Pain (pain scale 4-5) Docusate Sodium [Colace] 100 mg PO BID PRN PRN #60 cap PRN Reason: Constipation Doxycycline 100 mg PO BID 12 Days #24 cap [facility] [Primary [facility] Provider] - Please follow up with your Primary Care Physician in: Follow-up within 3-5 days to review admission. Test Results: Test results from this visit will be discussed in further detail at your follow-up appointment, if applicable. Please Follow Up With: Camron Richard PA-C When: Please contact office to set-up evaluation Tuesday with Orthopedic PA Proposed Discharge Date: 12/07/17
--- NOTE | 2017-12-07 10:53 | PCM.HP.ID ---
Problem List (1) MRSA infection Status: Acute (2) Olecranon bursitis of right elbow Status: Acute Reason for Consult: mrsa Consulted by: Dr. Loomis History of Present Illness: The patient is a 71 year old M with no prior h/o MRSA who presented with 2 weeks of R elbow swelling, pain, redness. No drainage, no fever/chills. No inciting trauma. Came to ED, started on keflex/bactrim, minimal improvement and then worsening around 12/03. Came to ED, admitted, had I&D done 12/[address] Borrero. Surg cx now with MRSA, changed to iv clinda. Feeling better, no pain. Full ROS performed and neg except as noted above. - Medical History Past Medical History (Chronic Problems): Chronic Problems Arthritis (Chronic) Hyperlipidemia (Chronic) Allergies/Adverse Reactions: Allergies bee venom protein (honey bee) Allergy (Verified 12/04/17 10:25) Anaphylaxis Home Medications: Ambulatory Orders Medication Instructions Recorded Epinephrine [Epi Pen] 0.3 mg IM X1 #2 syringe 11/21/16 Simvastatin [Zocor] 5 mg PO QHS 11/21/16 traMADol [Ultram (G)] 50 mg PO Q6H PRN PRN 11/21/16 Cephalexin [Keflex] 500 mg PO Q6 #28 cap 11/30/17 Naproxen Sodium [Aleve] 220 mg PO BID PRN 11/30/17 Smz/Tmp Ds [Bactrim Ds] 1 tab PO BID #14 tab 11/30/17 - Social History SMOKING STATUS:: Former smoker Vital Signs Temp Pulse Resp BP Pulse Ox 98.4 F 60 16 158/68 H 98 12/07/17 07:31 12/07/17 07:36 12/07/17 07:31 12/07/17 07:31 12/07/17 07:31 Oxygen Delivery Method Room Air Weight: 122.47 kg Body Mass Index (BMI) 37.6 Microbiology Past 72 Hours 12/05/17 08:45 Gram Stain - Final Fluid - Synovial (joint) Body Fluid Culture - Final Meth. resistant Staph. aureus 12/04/17 15:20 Gram Stain - Final Wound - Elbow Wound Culture - Final No growth aerobically. - Other Studies Radiology: [] reviewed Other Studies: [] Route of nutrition/ use of supplements: [] Nutritional Intake: [] IV Site: [] Bray Catheter: [] - Physical Exam General: Alert, Oriented x3, Cooperative, No apparent distress HEENT: Atraumatic, PERRLA, EOMI Neck: Supple, No Nodes Lungs: Clear to auscultation, Normal air movement Cardiovascular: Regular rate, Regular Rhythm, No murmurs Abdomen: Soft, Non Tender, Non-Distended Extremities: No edema Skin: Incision - RUE wrapped IV Site: Peripheral, without redness Neurological: Cranial nerves II-XII grossly intact - Assessment/Plan Antibiotics: [] Assessment/Plan: [] Active and Suspected Problems Cellulitis of right elbow (Acute) R elbow MRSA septic olecranon bursitis - s/p I&D by Dr. Borrero 12/05. On clinda. Ok for d/c home on po doxy 100mg bid for 12 more days. Will follow, thank you, d/w Dr. Loomis.
--- NOTE | 2017-12-07 11:04 | PCM.PN.ORT ---
Patient Problems: Active and Suspected Problems Cellulitis of right elbow (Acute) Subjective: Patient sitting up in bed. at his side. Denies pain, Numbness tingling, or loss of function of his right hand or fingers. Denies chest pain, shortness breath, calf pain, nausea vomiting. No other complaints, ready for discharge home Objective: Upon exam, dressing was removed. REMY drain was removed from the incision. Patient had a small amount of serous blood-tinged drainage. This did not appear to be purulent. The skin was nonerythematous. Tissue surrounding the incision and drainage area appeared to be mildly macerated. Patient had good flexion-extension of the right elbow, and did not present as a septic joint. She has good distal pulses good cap refill no clubbing cyanosis or edema of the digits. He had good supination pronation flexion-extension of the wrist without pain. The forearm was soft nontender and nonerythematous. - Physical Exam General: Alert, Oriented x3, Cooperative Oral: Moist Mucosa Neurological: Cranial nerves II-XII grossly intact Psych/Mental Status: Normal Affect, Alert and oriented to time, place, person, mood and affect Vital Signs Temp Pulse Resp BP Pulse Ox 98.4 F 59 L 16 158/68 H 98 12/07/17 07:31 12/07/17 08:30 12/07/17 07:31 12/07/17 07:31 12/07/17 07:31 Oxygen Delivery Method Room Air Weight: 122.47 kg Body Mass Index (BMI) 37.6 Intake and Output for Last 24 Hours 12/05/17 12/06/17 12/07/17 23:59 23:59 23:59 Intake Total 3274 / 3274 3413 / 3413 1765 / 1765 Balance 3274 / 3274 3413 / 3413 1765 / 1765 Microbiology Past 72 Hours 12/05/17 08:45 Gram Stain - Final Fluid - Synovial (joint) Body Fluid Culture - Final Meth. resistant Staph. aureus 12/04/17 15:20 Gram Stain - Final Wound - Elbow Wound Culture - Final No growth aerobically. Medical Necessity - Tobacco Use Smoking Status: Former smoker Assessment/Plan All Active Problems Cellulitis of right elbow (Acute) Status post incision drainage of a right elbow olecranon bursa, and cellulitis.\Stable Plan 1. Continue all pain medications as prescribed 2. Continue all antibiotics as prescribed by infectious disease, and Dr. Loomis 3. Dressing to remain intact until follow-up on 09/08/2017 4. Dressing is to remain clean and dry, right arm elevated and iced. 5. Call office for appointment
--- NOTE | 2017-12-07 11:08 | PCM.DC.SUM ---
Discharge Date and Diagnosis - Problem List Patient Problems: Active and Suspected Problems MRSA infection (Acute) Olecranon bursitis of right elbow (Acute) Cellulitis of right elbow (Acute) Date of Admission: 12/04/17 Date of Discharge: 12/07/17 - Primary Discharge Diagnosis Active and Suspected Problems (1) Acute MRSA Right Olecranon Septic Bursitis w/ surrounding R Elbow Cellulitis (2) Mild renal insufficiency, Dehydration (3) Hyperlipidemia (4) Obesity (5) OA - Secondary Discharge Diagnosis Chronic Problems Arthritis (Chronic) Hyperlipidemia (Chronic) Hospital Course and Treatment Dr. Borrero Orthopedic surgery Dr. George Infectious disease Operations: - - 12/05/17 irrigation and debridement of right olecranon bursa for septic olecranon bursitis per Dr. Santiago Borrero. Procedures: None Summary of Care Provided: The patient is a 71 y/o M w/ PMHx: OA, HLD, Obesity who presented to the [facility] on 12/04/17 with history of worsening R elbow redness, pain, edema x 1.5 wk, worsening progressively. Admitted and treated for Acute MRSA Right Olecranon Septic Bursitis w/ surrounding R Elbow Cellulitis w/ admission CBC w/ WBC 8.6 without marked L shift, ESR 59, ED plain film w/ soft tissue swelling and edema concerning for bursitis. Patient admitted to [place], maintained on IV ancef, OR 12/05/17 with Irrigation debridement of right olecranon bursa w/ drain in place per Dr. Borrero. Wound MRSA/MSSA screen negative. Patient remains on IV cefazolin-->given now resulted MRSA will transition based on sensitivities to IV clindamycin. His vital signs are stable, afebrile. Screen for MRSA and staph aureus were negative; however, OR Cultures w/ MRSA. Currently sensitivities w/ clindamycin, gentamicin, levofloxacin, linezolid, tigecycline, open, tetracycline, Bactrim, vancomycin sensitive. Orthopedic surgery noting additional 24 hours abx IV with oral transition and likely discharge with home health. Given MRSA positive, requestrf ID consultation and transitioned from ancef to IV clindamycin with follow-up ID evaluation with recommendation for transition given sensitivities to oral doxycycline 12 day course. Re-assessment per Orthopedic surgery with dressing takedown, drain removal and clearance for discharge to home. During admission noted Mild renal insufficiency felt likely secondary to acute presentation w/ admission creatinine is 1.38, baseline 1, improved. Discharge recommendations per discussion with Orthopedic surgery included: Keep dressing clean and dry (leave intact with planned change in office on Tuesday), no water submersion, any onset redness, increased swelling, fever or chills immediately call Orthopedic surgery. Please continue to ice region 20 minutes on-off at least 3x daily. Elevate extremity above your heart when seated and in bed. Discharged to home in improved, stable condition with continued abx therapy, pain regimen PRN, planned Orthopedic and PCP follow-up. Discharge Activity: May not drive while taking narcotic pain medications. Keep extremity elevated above heart level: Right Arm Additional Activity Instructions:: Keep dressing clean and dry (leave intact with planned change in office on Tuesday), no water submersion, any onset redness, increased swelling, fever or chills immediately call Orthopedic surgery. Please continue to ice region 20 minutes on-off at least 3x daily. Elevate extremity above your heart when seated and in bed. Call your doctor if your incision/area has: Continuous Slow Oozing, Sudden Increased Bleeding, Increased Pain/ Swelling, Increased Redness, Foul Smelling Discharge, Swelling at the incision site Call your doctor if you observe: Fever of 101 or Higher, Inability to urinate, Inability to have a bowel movement, Shortness of breath, Dizziness, Fainting spells, Chest pain, Uncontrolled pain Home Medications: Medications to take at Discharge Epinephrine [Epi Pen] 0.3 mg IM X1 #2 syringe 11/21/16 Simvastatin [Zocor] 5 mg PO QHS 11/21/16 Naproxen Sodium [Aleve] 220 mg PO BID PRN 11/30/17 Docusate Sodium [Colace] 100 mg PO BID PRN PRN #60 cap 12/07/17 Doxycycline 100 mg PO BID 12 Days #24 cap 12/07/17 Oxycodone [Oxyir] 5 - 10 mg PO Q4H PRN PRN 5 Days #60 tablet 12/07/17 Following Prescrptions Were Given to Patient: Oxycodone [Oxyir] 5 - 10 mg PO Q4H PRN PRN 5 Days #60 tablet PRN Reason: Moderate Pain (pain scale 4-5) Docusate Sodium [Colace] 100 mg PO BID PRN PRN #60 cap PRN Reason: Constipation Doxycycline 100 mg PO BID 12 Days #24 cap [facility] Physician: [facility] [Primary [facility] Provider] - Please follow up with your Primary Care Physician in: Follow-up within 3-5 days to review admission. Please Follow Up With: Camron Richard PA-C When: Please contact office to set-up evaluation Tuesday with Orthopedic PA Patient Instructions: What Is Bursitis?, ED Bursitis Elbow Olecranon Disposition: Home Minutes spent on discharge:: 35 Patient Condition:: Fair Medical Necessity - Tobacco Use Smoking Status: Former smoker Meaningful Use Info Meaningful Use Diagnoses (Choose all that apply): None applicable Code Visit Inpatient E&M: 35181 Disch Hosp
[2017-12-07 12:15] VITALS: BP 152/98; PULSE 61; RESP 17; TEMP 37.1; O2SAT 98
== END 2017-12-07 12:35 | disposition home or self-care (01) | DRG 501 ==
LOC: ED 13:28 → MS3 13:40
PROVIDERS: Admitting Provider Hospitalist; Emergency Provider Emergency Medicine; Visit Provider Family Medicine
DX: M71.121 Other infective bursitis, right elbow (principal); L03.113 Cellulitis of right upper limb; E78.5 Hyperlipidemia, unspecified; B95.62 Methicillin resistant Staphylococcus aureus infection as the cause of diseases classified elsewhere; E86.0 Dehydration; N28.9 Disorder of kidney and ureter, unspecified; E66.9 Obesity, unspecified; M19.90 Unspecified osteoarthritis, unspecified site; Z68.37 Body mass index [BMI] 37.0-37.9, adult
CPT/HCPCS: 36415; 73080; 80048; 85025; 85652; 86140; 87070; 87075; 87077; 87186; 87205; 87640; 99284; J7030; A4216; J2405

== ENCOUNTER 2018-12-13 08:59 | Day surgery (SDC) | payer MEDICARE, OTHER, SELFPAY ==
[2018-12-13 09:20] VITALS: BP 153/81; PULSE 70; RESP 16; TEMP 37; O2SAT 97; BMI 37.9
--- NOTE | 2018-12-13 10:32 | HP.PCM_ITS ---
History of Present Illness Date of Admission: 12/13/18 The patient is a 73 year old M who presents for colonoscopy. Patient had a colonoscopy 5 years ago at the [facility] and was found to have polyps. Past Medical/Surgical History - Planned Operation Planned Operative Procedure/s: cscope open access Date of Operative Procedure: 12/13/18 Permit Signed: No S.O.S: No Is This Patient Having a Total Joint: No - Previous Hospitalizations/Surgeries HX Hospitalizations: Yes - 2018 infection to elbow HX of Surgeries: hand surgery Any Problems With Anesthesia: No You/Your Family Experience Fever (Hyperthermia) With Anes: No Cholinesterase deficiency: No - Cardiovascular Hx Chest Pain within Last 2 months: No Hx of Irregular Heartbeat and/or Afib: No Hx Heart Attack: No Hx Congestive Heart Failure: No Hx Rheumatic Fever: No Hx Hypertension: No Hx Internal Defibrillator: No Hx Pacemaker: No Hx Cardiac Catheterization: No Hx Cardiac Surgery/Stents/Etc.: No Hx Stress Test: No HX Edema: No Hx Pain in Legs when Walking/Leg Cramps: No - Respiratory Chronic Cough: No HX of Shortness of Breath: Yes - slightly sob with 2 flights of stairs Hoarseness: No Hx Chronic Obstructive Pulmonary Disease (COPD): No Hx Asthma: No Hx Emphysema: No Hx Sleep Apnea: No Hx Oxygen Use at Home: No Hx Respiratory Tract Infection/Cold (presently): No Do You Snore Loudly (louder than talking or can be heard): No Do You Often Feel Tired/ Fatigued/ Sleepy Dring Daytime?: No Has Anyone Observed You Stop Breathing During Sleep?: No Result (for STOP score): Negative Hx Smoking: Yes - quit 23 yrs ago Smoking Status: Former smoker - Gastrointestinal Hx Gastroesophageal Reflux: No Hx Gastrointestinal Disorders: No Hx Gastrointestinal Bleed: No Hx Ulcer: No Hx Hiatal Hernia: No Difficulty Chewing/Swallowing: No Recent Onset of Swallowing Problems: No Special diet followed at home: No Hx Unplanned Weight Loss of 20#: No HX Unplanned Weight Gain of 20#: No - Neurological Hx Seizures: No HX Syncope/Blackout Spells/Unconsciousness: No Hx CVA/Stroke: No Hx Transient Ischemic Attacks (TIA): No Hx Multiple Sclerosis: No Hx Parkinson's Disease: No Hx Head/Neck Injury: No Hx Headaches: No Hx Back Injury/Pain: Yes - arthritis Recent Onset of Speech Difficulty: No Restless Legs: No Does patient have nerve stimulator: No Patient instructed to have device shut off: No Rep notified?: No - Blood Disorder Hx Leukemia: No Bleeding Tendencies: Yes - bruises easily Hx High Cholesterol: Yes - on med Blood Transmitted Disease: No Hx Hepatitis: No Hx Cirrhosis: No Hx Anemia: No Hx Blood Disorders: No - Genitourinary Hx Renal Disease: No Hx Dialysis: No - Musculoskeletal Hx Arthritis: Yes Hx Rheumatoid Arthritis: No Hx Gout: No Recent Onset of an Orthopedic Problem: No - Endocrine Hx Diabetes: No Thyroid Disease: No Hx Steroid Therapy: No - Psycho/Social Hx Substance Use: No Hx Alcohol Use: Yes - 2-3 beers/day Hx Anxiety: No Hx Depression: No Mental Illness: No Hx Dementia: No - Miscellaneous Hx Cancer: No Recent Exposure to Contagious Disease: No Active MRSA: No Hx of C-Diff: No Any Loose Teeth: No - full set of dentures Allergies bee venom protein (honey bee) Allergy (Verified 12/12/18 15:07) Anaphylaxis Maternal No pertinent history Paternal No pertinent history - Discharge Is Pt Admitted From a Skilled Nursing, or a Residential: No Who Could Help: family After D/C, Where Do you Plan to Go: Return Home - From the [facility] History Number of Risk Factors: 2 - Physical Exam General: Alert, Oriented x3 Lungs: Clear to auscultation Cardiovascular: Regular rate, Regular Rhythm, No murmurs Abdomen: Bowel Sounds Present, Soft, Non Tender, Non-Distended Vital Signs Temp Pulse Resp BP Pulse Ox 98.6 F 70 16 153/81 H 97 12/13/18 09:20 12/13/18 09:20 12/13/18 09:20 12/13/18 09:20 12/13/18 09:20 Oxygen Delivery Method Room Air Weight: 271 lb 13.279 oz Body Mass Index (BMI) 37.9 Assessment/Plan All Active Problems MRSA infection (Acute) Olecranon bursitis of right elbow (Acute) Cellulitis of right elbow (Acute) Plan will be to perform a colonoscopy Surgery Risks - Colonoscopy Risks Include but are not Limited To: Risks include but are not limited to: Bleeding, perforation requiring further surgery, inability to complete colonoscopy requiring barium enema.
[2018-12-13 11:00] VITALS: BP 137/82; BP 153/81; PULSE 67; RESP 16; TEMP 36.4; O2SAT 97
[2018-12-13 11:05] VITALS: BP 135/85; BP 153/81; PULSE 67; RESP 18; O2SAT 97
[2018-12-13 11:10] VITALS: BP 119/93; BP 153/81; PULSE 63; RESP 18; O2SAT 97
[2018-12-13 11:18] VITALS: BP 138/78; BP 153/81; PULSE 62; RESP 18; TEMP 36.6; O2SAT 96
[2018-12-13 11:36] VITALS: BP 153/81
--- NOTE | 2018-12-13 16:56 | OP.ENDO_ITS ---
12/14/2018 [facility] Re : Colonoscopy procedure for [facility] This procedure was performed on Thursday, December 13, 2018. My impressions and recommendations are as follows: Impressions : - Diverticulosis in the sigmoid colon. No specimens collected. - Non-bleeding internal hemorrhoids. No specimens collected. - The examination was otherwise normal. Recommendations : - Discharge patient to home. - Resume previous diet. - Continue present medications. - Repeat colonoscopy in 10 years for screening purposes. - Return to primary care physician PRN. My findings are described in the full procedure note, which is enclosed. If I can be of further assistance, please feel free to contact me at Doctor phone number(s): , Fax: [phone], Work: . Sincerely, MD Dimitri Quiñonez MD 12/13/2018 11:01:12 AM This report has been signed electronically.
== END 2018-12-13 11:54 | disposition home or self-care (01) ==
LOC: EN 09:00 → AC 09:02
PROVIDERS: Visit Provider Surgery
PROC: 0DJD8ZZ Inspection of Lower Intestinal Tract, Via Natural or Artificial Opening Endoscopic (ICD-10-PCS; CPT 45378; principal; 2018-12-13 10:10)
DX: Z12.11 Encounter for screening for malignant neoplasm of colon (principal); K57.30 Diverticulosis of large intestine without perforation or abscess without bleeding; K64.8 Other hemorrhoids; E78.00 Pure hypercholesterolemia, unspecified; M19.90 Unspecified osteoarthritis, unspecified site; Z86.010 Personal history of colon polyps; Z87.891 Personal history of nicotine dependence
CPT/HCPCS: G0105; J7120

== ENCOUNTER 2022-10-17 08:51 | Emergency (ER) | payer OTHER, SELFPAY ==
[2022-10-17 08:52] VITALS: BP 180/92; PULSE 87; RESP 16; TEMP 36.3; O2SAT 96; BMI 36.2
--- NOTE | 2022-10-17 09:44 | EX.ED.UPPERE ---
HPI History of Present Illness Chief Complaint: Upper Extremity Injury Narrative Narrative: 76-year-old male presenting with numbness that starts at the left elbow and goes down the forearm medially. He states he notes that when he goes to sleep sometimes his arm will fall asleep. He thinks it is always laying. He has no other trauma to the area. Strength seems normal. PFSH PFSH Home Medications epinephrine 0.3 mg/0.3 mL injection, auto-injector 0.3 mg (0.3 mL) IM X1 ##2 11/21/16 [Rx Last Taken Unknown] simvastatin 10 mg tablet 5 mg PO QHS cholesterol 11/21/16 [History Last Taken Unknown] naproxen sodium 220 mg tablet (Aleve) 220 mg PO BID PRN Pain 11/30/17 [History Last Taken Unknown] tramadol 50 mg tablet 50 mg PO Q6H PRN PRN Pain 12/12/18 [History Last Taken Unknown] Allergy/AdvReac Type Severity Reaction Status Date / Time bee venom protein (honey bee) Allergy Anaphylaxis Verified 12/12/18 15:07 Social History Smoking Status: Former smoker ROS ROS ED Constitutional Constitutional ED: Denies chills, fever(s) or sweats Eyes Eyes: Denies blurry vision or change in vision ENT ENT ED: Denies ear pain or sore throat Cardiovascular Cardiovascular: Denies chest pain, palpitations or racing heartbeat Respiratory/Chest Respiratory/Chest: Denies cough, dyspnea or sputum Gastrointestinal Gastrointestinal: Denies abdominal pain, constipation, diarrhea, nausea or vomiting Genitourinary Genitourinary ED: Denies dysuria, hematuria or urinary frequency Musculoskeletal Musculoskeletal: Reports other Details: Numbness and tingling in the left medial forearm and elbow ; Denies arthralgias, myalgias or neck pain Integumentary Denies abscess, Abrasions or rash Neurologic Neurologic: Denies headache(s), paresthesias or weakness Psychiatric Psychiatric: Denies anxiety, depression, suicidal ideation or suicidal thoughts Endocrine Endocrinology: Denies polydipsia or polyuria EXAM Physical Exam Const Vital Signs: 10/17/22 08:52 Temperature 97.4 F L Temperature Source Temporal Pulse Rate 87 Respiratory Rate 16 Blood Pressure 180/92 H Blood Pressure Mean 121 Pulse Ox 96 Oxygen Delivery Method Room Air Positive well nourished General Appearance ED: NAD HEENT Reports moist mucous membranes normocephalic Eyes PERRL and EOMs intact bilaterally Resp normal respiratory effort and clear to auscultation bilaterally Cardio regular rate and regular rhythm Neuro oriented x3 and CN's II-XII intact bilaterally Neuro Narrative: Full range of motion of left elbow in flexion, extension, pronation, supination. Wrist flexion and extension are also normal. Left hand motor strength intact. Brisk cap refill to all 5 fingers. Sensorium / Orientation: alert MDM MDM MDM Narrative Medical decision making narrative: Patient has numbness and tingling in the ulnar distribution of the left arm. This is likely caused by the way he sleeps on it. I counseled him to discontinue his position of sleep and this will likely go away on its own. No believe he needs any blood work or imaging. He is amenable to this. He is discharged home in stable condition. Impression: 1. Ulnar nerve compression Discharge Plan Triage Chief Complaint: Upper Extremity Injury ED Provider: Addison Rosales Dx/Rx/DC Orders Instructions: ED Ulnar Nerve Palsy Prescriptions: No Action simvastatin 10 MG tablet 5 mg PO QHS epinephrine 0.3 MG syringe 0.3 mg IM X1 Qty: 2 0RF naproxen sodium [Aleve] 220 MG tablet 220 mg PO BID PRN (Reason: Pain) tramadol 50 MG tablet 50 mg PO Q6H PRN PRN (Reason: Pain) [facility] [facility] [Primary Care Provider] - Disposition Disposition: Home, Self Care
== END 2022-10-17 09:52 | disposition home or self-care (01) ==
PROVIDERS: Emergency Provider Student in an Organized Health Care Education/Training Program; Visit Provider Student in an Organized Health Care Education/Training Program
DX: G56.22 Lesion of ulnar nerve, left upper limb (principal); Z79.1 Long term (current) use of non-steroidal anti-inflammatories (NSAID); Z87.891 Personal history of nicotine dependence
CPT/HCPCS: 99282